=== PATIENT | female | born 1940 | race Caucasian/White ===

== ENCOUNTER 2017-11-02 06:24 | Emergency (ER) | payer MEDICARE ==
[~2017-11-02 06:24] MED LIST: LISI1TAB11 PO
[2017-11-02] MEDS ORDERED: ACETAMINOPHEN-CODEINE 300/30MG TAB ONE (06:52)
[2017-11-02 07:39] LABS: CREATINE KINASE MB 2.6 ng/mL (0.5-3.6)
[2017-11-02] MEDS ORDERED: ASPIRIN 325 MG TABLET ONE (08:12)
== END 2017-11-02 09:02 | disposition home or self-care (01) ==
LOC: EDH 06:24
DX: R07.89 Other chest pain (principal); E78.5 Hyperlipidemia, unspecified; I10 Essential (primary) hypertension; Z72.0 Tobacco use; Z88.0 Allergy status to penicillin
CPT/HCPCS: 36415; 71045; 82550; 82553; 83874; 84484; 93005

== ENCOUNTER → 2018-10-05 | Outpatient (CLI) | payer MEDICARE | END | disposition home or self-care (01) | LOC: RAH 14:48 | PROVIDERS: ATTEND Internal Medicine | DX: R31.29 Other microscopic hematuria (principal) | CPT/HCPCS: 76770 ==